=== PATIENT | male | born 1970 ===

== ENCOUNTER 2019-04-16 08:58 | Outpatient (CLI) | payer OTHER ==
--- NOTE | 2019-04-16 09:16 | RAD ---
3 views right shoulder: 04/16/2019 COMPARISON: None HISTORY: Right shoulder pain FINDINGS: Mild degenerative change at the right acromioclavicular interspace with interspace narrowin g and osteophyte formation. No widening of the coracoclavicular interspace. No acute fracture or dislocation. IMPRESSION: Degenerative change of the right acromioclavicular joint.
== END 2019-04-16 08:59 | disposition home or self-care (01) ==
LOC: RAD-FRANK 08:58
PROVIDERS: ATTEND Internal Medicine
DX: M25.511 Pain in right shoulder (principal); M19.011 Primary osteoarthritis, right shoulder